=== PATIENT | male | born 1970 | race Caucasian/White ===

== ENCOUNTER 2017-09-27 23:26 | Emergency (ER) | payer OTHER ==
[~2017-09-27] VITALS: Ht 177.8 cm; Wt 94.0 kg
[~2017-09-27 23:26] MED LIST: BUSP30TA PO; CLON.5 PO; MOME17I; POLY119S PO; PRIL10CA PO; PROP20TA3 PO
[2017-09-27 23:49] VITALS: BP 143/70; PULSE 97; RESP 18; TEMP 97.9; O2SAT 98
== END 2017-09-27 23:50 | disposition left against medical advice (07) ==
LOC: PHED 23:26
DX: R42 Dizziness and giddiness (principal); I10 Essential (primary) hypertension; Z53.21 Procedure and treatment not carried out due to patient leaving prior to being seen by health care provider
CPT/HCPCS: 99281